=== PATIENT | male | born 1975 | race African-American/Black ===

== ENCOUNTER 2018-08-30 17:40 | Inpatient (IN) | payer OTHER ==
[~2018-08-30] VITALS: Ht 182.9 cm; Wt 114.8 kg
[2018-08-30 17:46] VITALS: BP 126/95
[2018-08-30] MEDS ORDERED: GLUCOPHAGE XR500 MG PO (17:50)
[2018-08-30] MEDS ORDERED: AMARYL2 MG PO (17:50)
[2018-08-30 20:50] LABS: ABSOLUTE LYMPHOCYTES 0.9 thou/uL (0.8-5.3); ABSOLUTE MONOCYTES 0.4 thou/uL (0.0-1.2); ABSOLUTE NEUTROPHILS 4.3 thou/uL (1.6-8.1); BASOPHILS 0.8 %; EOSINOPHILS 0.2 %; HEMATOCRIT 47.8 % (42.0-52.0); HEMOGLOBIN 16.3 gm/dL (14.0-18.0); LYMPHOCYTES 15.8 %; MCH 29.5 pg (26.0-34.0); MCV 86.7 fL (80.0-100.0); MONOCYTES 6.3 %; MPV 10.7 fl. (7.2-11.1); NUCLEATED RBCS 0 /100WBC; PLATELET COUNT* 160 thou/uL (150-400); POLYS 76.9 %; RBC 5.51 mil/uL (4.50-6.00); RDW-CV 15.4 % (10.5-14.5); WBC 5.6 thou/uL (4.0-11.0)
[2018-08-30 20:59] LABS: ANION GAP 23 mmol/L (7-16); BUN 13 mg/dL (7-18); CALCIUM 8.7 mg/dL (8.5-10.1); CHLORIDE 101 mmol/L (98-107); CO2 14 mmol/L (21-32); CREATININE 1.6 mg/dL (0.6-1.3); GLUCOSE 335 mg/dL (70-99); POTASSIUM 3.7 mmol/L (3.5-5.1); SODIUM 138 mmol/L (136-145)
[2018-08-30 21:06] LABS: ALKALINE PHOSPHATASE 191 U/L (46-116); LIPASE 870 U/L (73-393); SGOT 55 U/L (15-37); SGPT 88 U/L (30-65); TOTAL BILIRUBIN 1.4 mg/dL (<0.1-1.0); TOTAL PROTEIN 7.8 g/dL (6.4-8.2); TROPONIN-I LEVEL <0.06 ng/mL (<0.06)
[2018-08-30 21:30] LABS: BE -15.6 mmol/L (-2 to +3); PCO2 23.8 mmHg (35.0-45.0); PO2 109.3 mmHg (75.0-100.0)
[2018-08-30 21:32] LABS: pH 7.231 (7.340-7.450)
[2018-08-30 22:07] VITALS: BP 137/79
[2018-08-30 23:00] VITALS: BP 136/76
[2018-08-30 23:16] LABS: URINE BILIRUBIN NEGATIVE (Negative); URINE BLOOD 1+ (Negative); URINE CLARITY CLEAR; URINE COLOR YELLOW; URINE GLUCOSE-RANDOM 3+ (Negative); URINE LEUKOCYTES-REFLEX NEGATIVE (Negative); URINE NITRITE-REFLEX NEGATIVE (Negative); URINE PROTEIN TRACE (Negative); URINE UROBILINOGEN 0.2 E.U./dl (0.2-1.0)
[2018-08-30 23:17] LABS: URINE KETONES 3+ (Negative)
[2018-08-30 23:23] LABS: AMP/METHAMP Negative (Negative); BARBITURATES Negative (Negative); BENZODIAZEPINES Negative (Negative); COCAINE Negative (Negative); METHADONE Negative (Negative); OPIATES Negative (Negative); PCP Negative (Negative); THC Negative (Negative)
[2018-08-30 23:29] LABS: AMORPHOUS URATES Moderate /LPF (None Seen); BACTERIA-REFLEX >30 Many /HPF (None Seen); COARSE GRANULAR CASTS 4-10 Moderate /LPF (None Seen); FINE GRANULAR CASTS 4-10 Moderate /LPF (None Seen); HYALINE CASTS 0-3 Few /LPF (None Seen); MUCUS >6 Heavy strn/LPF (None Seen); SQUAMOUS 0-3 Few /LPF (0-3); URINE WBC-REFLEX 0-5 Rare /HPF (0-5)
[2018-08-30 23:32] LABS: ALBUMIN 3.9 g/dL (3.4-5.0); CALCIUM 8.7 mg/dL (8.5-10.1); CREATININE 1.5 mg/dL (0.6-1.3); MAGNESIUM 2.2 mg/dL (1.8-2.4); PHOSPHORUS* 2.5 mg/dL (2.5-4.9); POTASSIUM 3.5 mmol/L (3.5-5.1)
[2018-08-31] VITALS (23 sets, daily range): BP systolic 108–143; BP diastolic 56–81
[2018-08-31 03:57] LABS: ALBUMIN 3.4 g/dL (3.4-5.0); CALCIUM 8.4 mg/dL (8.5-10.1); CREATININE 1.5 mg/dL (0.6-1.3); PHOSPHORUS* 2.2 mg/dL (2.5-4.9); POTASSIUM 3.3 mmol/L (3.5-5.1)
--- NOTE | 2018-08-31 05:44 | NUR ---
PT RECEIVED FROM ER AND MOVED PER STAFF TO HOSPITAL BED, PT STILL VERY SLEEPY. REPS REG AND UNALBORED SKIN W/D NO ACUTE DISTRESS NOTED. MONITORS APPLIED AND BED CONTROLS CALL SYSTEM AND TV CONTROLS EXPLAINED TO PT, PT VOICED UNDERSTANDING. PT HAS HX OF SLEEP APNEA, O2 SAT DECREASED ONCE THIS SHIFT. SATS INCREASED WITH STIMULATION. OBRIEN INTACT AND PATENT DRAINING YELLOW URINE TO BEDSIDE BAG. SEE MED TITRATION CHARTING FOR INSULIN GTT CHARTING. VSS AND NO ACUTE CHANGES DURING THIS SHIFT WILL CONTINUE TO MONITOR. PT HAS RESTED QUIELTY.
[2018-08-31 07:37] LABS: ALBUMIN 3.3 g/dL (3.4-5.0); CALCIUM 8.5 mg/dL (8.5-10.1); CREATININE 1.6 mg/dL (0.6-1.3); PHOSPHORUS* 2.2 mg/dL (2.5-4.9); POTASSIUM 3.6 mmol/L (3.5-5.1)
--- NOTE | 2018-08-31 10:30 | EKG ---
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 : 1975 Requested By: Ashanti Mcghee Order Number: [id number] MD: Juan Santana Measurements Intervals [place] Rate: 97 P: 31 [place]: 165 QRS: 27 QRSD: 94 T: 43 QT: 378 QTc: 480 Interpretive Statements Sinus rhythm Probable left atrial enlargement Borderline prolonged QT interval No previous ECG available for comparison Electronically Signed On 08-31-2018 10:29:58 FOAM CASTER by Juan Santana [email or web address] <ELECTRONICALLY SIGNED> By: Juan Santana MD, [facility] 08/31/18 1029 52 52 Juan Santana MD, FACC /EPI
--- NOTE | 2018-08-31 10:45 | NUR ---
PT ADMITTED WITH DKA. PT SLEEPING NOW, WILL ASSESS AT LATER TIME.
--- NOTE | 2018-08-31 10:54 | NUR ---
Nutrition: Pt admitted with DKA, recently diagnosed with DM. Just started on glipizide and metformin. Pt likely needs DM education when more awake. RD will follow up tomorrow for DM diet education, if appropriate, 09/01/18.
[2018-08-31 11:49] LABS: ALBUMIN 3.2 g/dL (3.4-5.0); CALCIUM 8.3 mg/dL (8.5-10.1); CREATININE 1.6 mg/dL (0.6-1.3); PHOSPHORUS* 1.8 mg/dL (2.5-4.9); POTASSIUM 3.5 mmol/L (3.5-5.1)
[2018-08-31 15:55] LABS: ALBUMIN 3.3 g/dL (3.4-5.0); CALCIUM 8.4 mg/dL (8.5-10.1); CREATININE 1.5 mg/dL (0.6-1.3); MAGNESIUM 1.9 mg/dL (1.8-2.4); PHOSPHORUS* 1.6 mg/dL (2.5-4.9); POTASSIUM 3.2 mmol/L (3.5-5.1)
--- NOTE | 2018-08-31 19:06 | NUR ---
PT ASSESSMENT CHARTED. VSS THROUGHOUT SHIFT. GAP IS CURRENTLY CLOSED AND LABS TO BE DRAWN AT 1930. PT SLEPT MOST OF THE MORNING AND ONLY AT ABOUT 25-50% FOR ALL MEALS. NO COMPLAINTS OF PAIN. ELECTROLYTE REPLACEMENT STARTED.
[2018-08-31 19:49] LABS: CREATININE 1.6 mg/dL (0.6-1.3); MAGNESIUM 1.8 mg/dL (1.8-2.4); PHOSPHORUS* 2.5 mg/dL (2.5-4.9); POTASSIUM 3.6 mmol/L (3.5-5.1)
[2018-08-31 23:18] LABS: ALBUMIN 3.1 g/dL (3.4-5.0); CALCIUM 8.3 mg/dL (8.5-10.1); CREATININE 1.5 mg/dL (0.6-1.3); MAGNESIUM 1.9 mg/dL (1.8-2.4); PHOSPHORUS* 1.8 mg/dL (2.5-4.9); POTASSIUM 3.3 mmol/L (3.5-5.1)
[2018-09-01] VITALS (14 sets, daily range): BP systolic 104–138; BP diastolic 65–86
[2018-09-01 03:57] LABS: ABSOLUTE EOSINOPHILS 0.1 thou/uL (0.0-0.7); ABSOLUTE LYMPHOCYTES 1.5 thou/uL (0.8-5.3); ABSOLUTE MONOCYTES 0.3 thou/uL (0.0-1.2); ABSOLUTE NEUTROPHILS 2.6 thou/uL (1.6-8.1); BASOPHILS 0.7 %; EOSINOPHILS 1.7 %; LYMPHOCYTES 33.9 %; MCH 29.6 pg (26.0-34.0); MCHC 34.8 g/dL (28.0-37.0); MONOCYTES 6.2 %; MPV 10.6 fl. (7.2-11.1); NUCLEATED RBCS 0 /100WBC; PLATELET COUNT* 120 thou/uL (150-400); POLYS 57.5 %; RBC 4.24 mil/uL (4.50-6.00); RDW-CV 15.8 % (10.5-14.5); WBC 4.5 thou/uL (4.0-11.0)
[2018-09-01 04:07] LABS: HEMOGLOBIN 12.5 gm/dL (14.0-18.0)
[2018-09-01 04:34] LABS: ALBUMIN 3.1 g/dL (3.4-5.0); CALCIUM 8.3 mg/dL (8.5-10.1); CREATININE 1.5 mg/dL (0.6-1.3); PHOSPHORUS* 1.9 mg/dL (2.5-4.9); POTASSIUM 3.5 mmol/L (3.5-5.1); TOTAL BILIRUBIN 1.1 mg/dL (<0.1-1.0)
--- NOTE | 2018-09-01 05:55 | NUR ---
REPORT RECEIVED FROM OFF GOING SHIFT AND CARE ASSUMMED. PT AWAKE AND VISITING IEHT FAMILY AT BEGINNING OF SHIFT. PT STATED HE WAS VERY SLEEPY AN DHAS SLEPT MOST OF THE DAY. RESP REG AND UNALBORED KIN W/D NO ACUTE DISTRESS NOTED. MONITORS INTACT WITH ALARMS SET. VSS AND NO ACUTE CHANGES DURING SHIFT. PT WORE HOME CPAP AT BEDTIME THIS SHIFT AND O2 SATS WNL. INSULIN DRIP DCD AT 0545 THIS AM. WILL CONITNUE TO MONITOR. OBRIEN INTACT AND PATENT DRAINING CLEAR YELLOW URINE TO BEDSIDE BAG.
[2018-09-01] MEDS ORDERED: TRADJENTA5 MG PO (10:10)
[2018-09-01] MEDS ORDERED: AMARYL4 MG PO (10:10)
[2018-09-01] MEDS ORDERED: GLUCOPHAGE XR500 MG PO (10:10)
--- NOTE | 2018-09-01 10:45 | NUR ---
CHART REVIEWED, SPOKE WITH PT. 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 PT WAS DIAGNOSED WITH DIABETES TWO DAYS BEFORE ADMISSION. HE DOES NOT HAVE A GLUCOSE METER AT HOME. PT SAID HE IS STRUGGLING WITH THIS NEW DIAGNOSIS OF DIABETES BUT KNOWS THIS IS SOMETHING THAT HE CAN MANAGE. 'I HAVE ALWAYS TAKEN GOOD CARE OF MYSELF, I JUST NEED TO CONTINUE TO DO THAT. I CAN GET A HANDLE ON THIS.' SALES CONSULTANT TO PROVIDE DIET EDUCATION, NURSING TO PROVIDE DIABETIC TEACHING, HOW TO USE HIS GLUCOSE METER, ETC. PT AWARE HE WILL BE SENT HOME WITH ADDITIONAL EDUCATIONAL INFORMATION. PT KNOWS TO WRITE DOWN HIS BLLOD SUGARS AND TAKE THEM TO HIS NEXT APPT WITH PCP.
--- NOTE | 2018-09-01 14:44 | NUR ---
PATIENT BLOOD GLUCOSE REMAINS HIGH. SPOKE WITH SEARCH ENGINE OPTIMIZATION SPECIALIST ABOUT CARB CONTROL. ATTEMPTING TO TEACH HOW TO USE METER.
--- NOTE | 2018-09-01 19:22 | NUR ---
PATIENT DISCHARGED HOME PER PRIVATE CAR. INSTRUCTIONS GIVEN. ACCUCHECK METER GIVEN PT DEMONSTRATED USE OF SAME.
[2018-09-01 23:07] LABS: GLYCOHEMOGLOBIN (HGB A1C) 13.4 % (4.8-5.6)
== END 2018-09-01 19:32 | disposition home or self-care (01) | DRG 638 ==
LOC: M.ERS 17:40 → M.TBA-ER 21:25 → M.ICU 21:25
PROVIDERS: Internal Medicine; Physician Assistant; ADMIT Internal Medicine
PROC: 02HV33Z Insertion of Infusion Device into Superior Vena Cava, Percutaneous Approach (ICD-10-PCS; principal; 2018-08-30)
DX: E11.10 Type 2 diabetes mellitus with ketoacidosis without coma (principal); R71.0 Precipitous drop in hematocrit; F32.9 Major depressive disorder, single episode, unspecified; Z91.14 Patient's other noncompliance with medication regimen; Z87.891 Personal history of nicotine dependence; Z79.84 Long term (current) use of oral hypoglycemic drugs; Z79.899 Other long term (current) drug therapy; N28.9 Disorder of kidney and ureter, unspecified; Z91.19 Patient's noncompliance with other medical treatment and regimen